=== PATIENT | female | born 2000 | race Caucasian/White ===

== ENCOUNTER 2019-03-31 10:29 | Emergency (ER) | payer OTHER, SELFPAY ==
[2019-03-31] MEDS ORDERED: Loratadine 10 MG TAB ONE (11:03)
[2019-03-31] MEDS ORDERED: predniSONE 20 MG TAB ONE (11:03)
[2019-03-31] MEDS ORDERED: Famotidine 20 MG TAB ONE (11:03)
== END 2019-03-31 12:38 | disposition home or self-care (01) ==
LOC: EDBD 10:29 → SCSER 10:29
DX: L50.9 Urticaria, unspecified (principal)
CPT/HCPCS: 94799; J7512; J7620